=== PATIENT | male | born 1955 | race Caucasian/White ===

== ENCOUNTER 2024-03-09 09:02 | Outpatient (CLI) | payer MEDICARE, BC, SELFPAY | END 2024-03-09 09:03 | disposition home or self-care (01) | PROVIDERS: PCP Family Medicine; Visit Provider Family Medicine | DX: E78.2 Mixed hyperlipidemia (principal); I10 Essential (primary) hypertension; Z12.5 Encounter for screening for malignant neoplasm of prostate | CPT/HCPCS: 80048; 80061; 84460; G0103 ==

== ENCOUNTER 2024-12-01 12:42 | Outpatient (CLI) | payer MEDICARE, BC, SELFPAY ==
[2024-12-01 13:51] VITALS: BP 180/100; PULSE 78; RESP 18
--- NOTE | 2024-12-01 14:31 | W.PM.STED ---
Stress Test Note Date Date Seen: 12/01/24 Date of test: 12/01/24 Providers Primary care provider: Carlito Aguilar Stress test physician: Zacarias Chaparro Stress Test Note Stress test ordered: Stress Echo Indication for test: Chest pain Results discussion: Patient is a very nice gentleman who presents here with the above diagnosis, as referred by his primary care physician. Cardiac stress test medical history form is reviewed. Pretest EKG shows what appears to be atrial for fibrillation with a controlled rate of 57. Blood pressure 162/92. No acute ST wave changes are noted. Standard [place] protocol is done for duration of 7 minutes, patient achieved a metabolic equivalent of 8.3 Mets, maximum heart rate was 163 which is 128% of the target. Maximum blood pressure 210 on 80. Test is terminated because of fulfillment of protocol, he did not have any chest pain, review of his tracing showed no ST wave changes suggestive of ischemia. He recovered normally in the recovery room. Impression: Negative electrographic tracing, for ST wave changes, subjectively negative, presumably a new finding of atrial fibrillation. Follow up suggested: Discussed with patient, follow-up with primary care physician is recommended. He is clinically controlled with his rate, and he is anticoagulated already for a past history of sounds like pulmonary emboli/DVTs. Await echo read by Cardiology, and clinical correlation with this will be needed. Exercise tolerance felt to be good. No complications and patient left this test testing facility in good condition
== END 2024-12-01 13:54 | disposition home or self-care (01) ==
LOC: STRESS 12:45
PROVIDERS: PCP Family Medicine; Visit Provider Family Medicine
DX: R07.9 Chest pain, unspecified (principal)
CPT/HCPCS: 93016; 93325; 93351